=== PATIENT | female | born 1975 | race Caucasian/White ===

== ENCOUNTER 2018-07-27 05:05 | Day surgery (SDC) | payer BC, OTHER ==
[2018-07-25 16:59] VITALS: BMI 26.7
[2018-07-27] MEDS ORDERED: PHENAZOPYRIDINE HCL 100 MG TABLET (FP) ONE (07:18)
[2018-07-27] MEDS ORDERED: CEFAZOLIN 1 GM/D5W 1 GM/50 ML BAG IVPB ONE (07:18)
--- NOTE | 2018-07-27 07:18 | HP ---
History & Physical Update - History History: No Change - Physical Physical: No Change - Assessment Assessment: No Change - Plan Plan: No Change (No change in HP)
[2018-07-27] MEDS ORDERED: PHENAZOPYRIDINE HCL 100 MG TABLET (FP) PO STA (07:19)
[2018-07-27] MEDS ORDERED: BUPIVACAINE HCL/PF 0.5% (5MG/ML) 10 ML VIAL ONE (07:26)
[2018-07-27 07:47] LABS: EPI CELLS 7.4 /HPF (0-5/HPF); HYALINE CASTS 3 /lpf (0-8); URINE APPEARANCE CLEAR; URINE BACTERIA 92.6 /hpf (NEGATIVE); URINE BILIRUBIN NEGATIVE (NEGATIVE); URINE COLOR YELLOW; URINE GLUCOSE (UA) TRACE (NEGATIVE); URINE KETONE NEGATIVE (NEGATIVE); URINE LEUK ESTERASE NEGATIVE (NEGATIVE); URINE NITRITE NEGATIVE (NEGATIVE); URINE PROTEIN 1+ (NEGATIVE); URINE RBC 5 /hpf (0-4); URINE UROBILINOGEN 0.2 mg/dL (0.2-1.0); URINE WBC 2 /hpf (0-5)
[2018-07-27] MEDS ORDERED: ROPIVACAINE HCL 0.5% 30ML VIAL ONE (07:56)
[2018-07-27] MEDS ORDERED: MIDAZOLAM HCL 2 MG/2 ML SINGLE DOSE VIAL ONE ×2 (07:58)
[2018-07-27] MEDS ORDERED: PROPOFOL 20 ML ONE ×2 (08:15)
[2018-07-27] MEDS ORDERED: SUCCINYLCHOLINE CHLORIDE 200 MG/10 ML SYRINGE ONE (08:16)
[2018-07-27] MEDS ORDERED: ROCURONIUM BROMIDE 50 MG/5 ML SYRINGE ONE (08:16)
[2018-07-27] MEDS ORDERED: fentaNYL CITRATE 250 MCG/5 ML VIAL ONE (08:17)
[2018-07-27] MEDS ORDERED: ceFAZolin SODIUM 1 GM VIAL IVPB ONE (08:45)
[2018-07-27] MEDS ORDERED: LIDOCAINE HCL/PF 2% SDV 5ML VIAL ONE (08:53)
[2018-07-27] MEDS ORDERED: DEXAMETHASONE SOD PHOSPHATE 4 MG/1 ML VIAL ONE (08:53)
[2018-07-27] MEDS ORDERED: HYDROmorphone HCl 2 MG/ML VIAL ONE (08:59)
[2018-07-27] MEDS ORDERED: ceFAZolin SODIUM 1 GM VIAL ONE ×2 (08:59→17:13)
[2018-07-27] MEDS ORDERED: DESFLURANE GAS 240 ML BOTTLE IH ONE (09:59)
[2018-07-27] MEDS ORDERED: NEOSTIGMINE METHYLSULFATE 0.5 MG/ML - 10 ML MDV ONE (10:31)
[2018-07-27] MEDS ORDERED: GLYCOPYRROLATE 0.2 MG/1 ML VIAL ONE (10:31)
[2018-07-27] MEDS ORDERED: BUPIVACAINE HCL/PF 0.5% (5MG/ML) 10 ML VIAL IJ ONE (10:47)
[2018-07-27] MEDS ORDERED: ONDANSETRON 4 MG/2 ML VIAL IVPUSH PRN ×2 (11:19→11:22)
[2018-07-27] MEDS ORDERED: INSULIN REGULAR HUMAN 100 UNITS/ML *VIAL SQ ONE (11:20)
[2018-07-27] MEDS ORDERED: SIMETHICONE 80 MG TAB.CHEW (FP) PO PRN (11:22)
[2018-07-27] MEDS ORDERED: BISACODYL 5 MG TABLET.DR (FP) PO PRN (11:22)
[2018-07-27] MEDS ORDERED: ACETAMINOPHEN 325 MG TABLET (FP) PO PRN (11:22)
[2018-07-27] MEDS ORDERED: IBUPROFEN 800 MG/8 ML IJ IVPB PRN (11:22)
[2018-07-27] MEDS ORDERED: oxyCODONE HCL 5 MG TABLET PO PRN ×2 (11:22)
[2018-07-27] MEDS ORDERED: DOCUSATE SODIUM 100 MG CAPSULE (FP) PO PRN (11:22)
[2018-07-27] MEDS ORDERED: SODIUM CHLORIDE 1,000 ML IV SCH (11:30)
[2018-07-27] MEDS: ACETAMINOPHEN 1000 MG/100 ML VIAL (NON FORMULARY) IVPB ONE ×2 (11:35→17:16)
--- NOTE | 2018-07-27 11:49 | OP ---
Operative Note - Note: Operative Date: 07/27/18 Pre-Operative Diagnosis: uterine endometriosis. Abdominal pain Operation: robotic assisted laparoscopic hysterectomy, bilateral salpingectomy Post-Operative Diagnosis: Same as Pre-op Surgeon: Larissa Ng Store Warehouse Associate: Latoya Ojeda Anesthesiologist/ASSISTANT COACH: Hope Carrillo Anesthesia: General Specimens Removed: uterus. bilateral fallopian tubes Estimated Blood Loss (mls): 25 Drains, Volume Out (mls): 225 (melendrez) Fluid Volume Replaced (mls): 1,500 Operative Report Dictated: Yes
--- NOTE | 2018-07-27 11:53 | SURG ---
Surgery Insect Control Aide Note Insect Control Aide: Latoya Ojeda PA-C Date of Service: 07/27/18 Diagnosis: uterine endometriosis Abdominal pain Procedure: robotic assisted laparoscopic hysterectomy, bilateral salpingectomy I was present for the entirety of the operative procedure. For further detail, please refer to operative report. Visit type - Case Type Case Type: Scheduled - Emergency Emergency Visit: No - New patient This patient is new to me today: Yes Date on this admission: 07/27/18
[2018-07-27] MEDS ORDERED: DEXTROSE 5%-WATER - 50 ML IVPB ONE (17:13)
[2018-07-27] MEDS: CEFAZOLIN 1 GM in DEXTROSE 5%-WATER - 50 ML IVPB SCH (17:15)
[2018-07-27] MEDS: INSULIN SLIDING SCALE (NOVOLOG) 1 VIAL SQ SCH (17:16)
[2018-07-27] MEDS ORDERED: CEFAZOLIN 1 GM/D5W 1 GM/50 ML BAG IVPB SCH (17:30)
[2018-07-27 20:11] LABS: HEMATOCRIT 25.6 % (32.4-45.2); MCH 24.6 pg (25.7-33.7); MCHC 31.3 g/dl (32.0-36.0); MEAN CELL VOLUME 78.8 fl (80-96); PLATELET COUNT 583 K/MM3 (134-434); RBC 3.25 M/mm3 (3.60-5.2); RDW 18.2 % (11.6-15.6); WHITE BLOOD COUNT 14.9 K/mm3 (4.0-10.0)
[2018-07-27 20:15] LABS: BLOOD UREA NITROGEN 6.9 mg/dL (7-18); CALCIUM 8.5 mg/dL (8.5-10.1); CREATININE 0.7 mg/dL (0.55-1.3); POTASSIUM 4.1 mmol/L (3.5-5.1)
--- NOTE | 2018-07-27 20:39 | OP ---
DATE OF OPERATION: 07/27/2018 PREOPERATIVE DIAGNOSIS: Leiomyomatous uterus, pelvic pain, menorrhagia, adenomyosis. OPERATION: Laparoscopic robotic total hysterectomy and bilateral salpingectomy. SURGEON: Aury Ng MD EVAPORATOR OPERATOR: CHRISTEL Colbert ANESTHESIA: General. FINDINGS: Uterus approximately 12 to 13 cm in size. Normal tubes and ovaries. PROCEDURE: The patient was taken to the operating room, placed in dorsal lithotomy position, prepped and draped in the usual sterile fashion. A time-out was performed in accordance with hospital regulation. Speculum was placed in the vagina, anterior lip of the cervix grasped with single-tooth tenaculum. Cervix was then dilated to accommodate the large uterine manipulator. Manipulator was placed around the cervix, and Kerr catheter was then inserted in the bladder. Attention was then drawn to the umbilicus, where an 8-mm umbilical incision was made. Veress was inserted into the cavity. Approximately 3 to 4 L CO2 was insufflated in the cavity. Veress needle was then removed. An 8-mm trocar was then inserted. Visualization revealed bowel attached to the upper abdomen and omentum also attached to the upper abdomen. Two trocars were placed on the left side, one incision parallel to the umbilical incision and one in the upper abdomen away from the attached bowel. Trocars were placed under direct visualization. An AirSeal cannula was placed in the upper abdomen. Attention was then drawn to the right side, where two 8-mm incisions were made 8 to 10 cm apart from each other, and the trocars were placed under direct visualization, and the da Rashaun robot was then side docked to the patient's arm, trocars were confirmed placement, and instruments were then inserted. All trocars were confirmed and burped up and after placement of all instruments above the uterus, attention was then drawn to the console, where control of the da Rashaun robot was then done. Tenaculum was placed in arm number 4 and was used to elevate and lift the uterus. Uteroovarian ligaments identified on the left and clamped and cut. Uterine artery was identified and clamped and cut. Vesicouterine reflection was then entered and the bladder was bluntly dissected out of the operative field. The uterine manipulator was then identified. Cardinal ligaments identified and clamped and cut. Ureter was identified on the left and found to have peristalsis. Vagina was then entered using Endo Marichuy, and the same procedure was repeated on the right side, where uteroovarian ligament was identified and clamped and cut. Uterine arteries were identified, clamped and cut. Cardinal ligaments identified, clamped and cut. Vesicouterine reflection was then entered on the right side and bladder was bluntly dissected out of the operative field. The Endo Marichuy was then used to cut the vagina away from the cervix circumferentially, and cervix was then removed from the vagina. Attention was then drawn to the vagina, where tenaculum was placed on the cervix and the uterus and then the uterus was exteriorized out of the vagina. The 2-0 V-Loc suture was then introduced and da Rashaun robot was used to continue a stitch on the vagina and close the vaginal cuff. The tubes were removed using cautery and cutting, and removed through the vagina before the vaginal cuff was closed. Hemostasis was achieved, irrigation done. Needle was then removed. Incisions were then closed using 3-0 Biosyn suture in subcuticular fashion. Wound was washed and dressed. Patient tolerated procedure well. Patient was taken to the recovery room in stable condition. Estimated blood loss 25 mL. Prior to closure of the case, ureters were both identified and found to have vigorous peristalsis. AURY NG M.D. [id number]
[2018-07-27] MEDS ORDERED: PT OWN MED DRAWER 7, Y5N ONE (21:25)
[2018-07-27] MEDS: ASPIRIN COATED 81 MG TABLET.EC PO SCH (21:28)
[2018-07-27] MEDS: lamoTRIgine 100 MG TABLET (FP) PO SCH (21:28)
[2018-07-27] MEDS ORDERED: INSULIN (LEVEMIR) 100 UNITS/ML UNITS SQ SCH (22:00)
[2018-07-27] MEDS ORDERED: LISINOPRIL 10 MG TABLET (FP) PO SCH (22:00)
[2018-07-27] MEDS ORDERED: ATORVASTATIN CA 20 MG TABLET (FP) PO SCH (22:00)
[2018-07-27] MEDS ORDERED: LAMOTRIGINE PO SCH (22:00)
[2018-07-28] MEDS ORDERED: ceFAZolin SODIUM 1 GM VIAL ONE ×2 (01:44→10:11)
[2018-07-28] MEDS ORDERED: DEXTROSE 5%-WATER - 50 ML IVPB ONE ×2 (01:44→10:11)
[2018-07-28] MEDS: CEFAZOLIN 1 GM in DEXTROSE 5%-WATER - 50 ML IVPB SCH ×2 (01:50→10:14)
[2018-07-28] MEDS ORDERED: PT OWN MED DRAWER 7, Y5N ONE (05:10)
[2018-07-28] MEDS: lamoTRIgine 100 MG TABLET (FP) PO SCH (05:35)
[2018-07-28] MEDS: INSULIN SLIDING SCALE (NOVOLOG) 1 VIAL SQ SCH ×2 (06:11→12:40)
[2018-07-28 06:43] VITALS: BP 111/68; PULSE 80; TEMP 98.5
[2018-07-28 07:32] LABS: HEMATOCRIT 25.4 % (32.4-45.2); HEMOGLOBIN 7.8 GM/dL (10.7-15.3); MCH 24.5 pg (25.7-33.7); MCHC 30.6 g/dl (32.0-36.0); MEAN CELL VOLUME 80.1 fl (80-96); PLATELET COUNT 527 K/MM3 (134-434); RBC 3.17 M/mm3 (3.60-5.2); RDW 18.4 % (11.6-15.6); WHITE BLOOD COUNT 13.6 K/mm3 (4.0-10.0)
--- NOTE | 2018-07-28 09:37 | PN ---
Progress Note (short form) - Note Progress Note: POD 1, s/p robotic assisted laparoscopic hysterectomy, bilateral salpingectomy Pt seen and examined. Reports she is feeling "okay". Has had some abdominal pain overnight, controlled with meds. Has been oob to the restroom, passed TOV. Tolerating water, did not eat last night as she was not hungry. Denies any vaginal bleeding. Has not passed flatus. Denies cp/sob/n/v/d, calf pain/edema. Vital Signs Temp 98.5 F 07/28/18 06:00 Pulse 80 07/28/18 06:00 Resp 18 07/28/18 06:00 BP 111/68 07/28/18 06:00 Pulse Ox 94 L 07/27/18 21:00 Intake & Output 07/27/18 07/27/18 07/28/18 11:59 23:59 11:59 Intake Total 1700 800 100 Output Total 250 2800 600 Balance 1450 -2000 -500 Intake: IV 1700 500 Normal Saline - 1,000 ml 500 @ 125 mls/hr IV ASDIR DANIA Rx#:[id number] IVPB 100 Oral 300 Output: Urine 225 2800 600 Kerr 1000 600 Estimated Blood Loss 25 Other: Voiding Method Indwelling Catheter Bowel Movement No CBC, BMP 07/28/18 06:34 07/28/18 06:34 Gen: awake, alert, nad Resp: unlabored on RA Abdo: soft, minimally ttp throughout pelvic area (appropriate to status), incisions c/d/i with dermabond in place. Ext: calves soft, nt A/p: 43 y/o F w/ PMHx htn, IDDM, HLD, uterine endometriosis now POD 1, s/p robotic assisted laparoscopic hysterectomy, bilateral salpingectomy. afebrile, vss Labs stable. -Plan for d/c this afternoon. Pts pharmacy permanently closed, unbeknownst to pt. [facility] meds. Cost <$3. Rn aware and will contact pharmacy to deliver meds. d/w attending Dr Ng
[2018-07-28] MEDS ORDERED: ENOXAPARIN NA (PORCINE) 40 MG/0.4 ML DISP.SYRIN SQ SCH (10:00)
[2018-07-28] MEDS ORDERED: ASPIRIN 81 MG CHEWABLE TABLETS PO SCH (10:00)
[2018-07-28] MEDS: ASPIRIN COATED 81 MG TABLET.EC PO SCH (10:14)
[2018-07-28 11:40] LABS: ALBUMIN 2.6 g/dl (3.4-5.0); BILIRUBIN,TOTAL 0.3 mg/dL (0.2-1); BLOOD UREA NITROGEN 8.5 mg/dL (7-18); CALCIUM 8.3 mg/dL (8.5-10.1); CREATININE 0.7 mg/dL (0.55-1.3); TOT PROT 5.9 g/dl (6.4-8.2)
--- NOTE | 2018-07-28 13:34 | PN ---
Progress Note (short form) - Note Progress Note: Anesthesia note post op POD#1, S/P robotic transvaginal hysterectomy. VSS. No post anesthesia complications reported. Pat D/c'd home.
--- NOTE | 2018-07-31 16:35 | PATH ---
Surgical Pathology Report Patient Name: KAYLIE RODRIGUEZ [facility]. Rec. #: [id number] /Age/Gender: 1975 (Age: 43) / F Account: [id number] Location: AMBULATORY SURG Taken: 07/27/2018 Received: 07/27/2018 Reported: 07/31/2018 Physicians: Larissa Ng M.D. Specimen(s) Received A: UTERUS AND CERVIX B: RIGHT FALLOPIAN TUBE C: LEFT FALLOPIAN TUBE Clinical History Pelvic pain, adenomyosis, menorrhagia Final Diagnosis A. UTERUS AND CERVIX, HYSTERECTOMY: LEIOMYOMATA. SECRETORY TYPE ENDOMETRIUM. CERVIX WITH NO SIGNIFICANT PATHOLOGIC CHANGE. B. RIGHT FALLOPIAN TUBE, SALPINGECTOMY: PORTION OF FALLOPIAN TUBE WITH ENDOSALPINGIOSIS. C. LEFT FALLOPIAN TUBE, SALPINGECTOMY: PORTION OF FALLOPIAN TUBE WITH ENDOSALPINGIOSIS. Electronically Signed Colin Wesley M.D. Gross Description A. Received in formalin labeled "uterus and cervix," is a 315 g uterus with an attached cervix and no attached adnexa. The specimen measures 11 cm from superior to inferior, 8.0 cm from anterior to posterior and 7.8 cm from left to right. The serosa is rojas richards with focal defects. The attached cervix measures 3 cm in length and averages 2.3 cm in diameter. The ectocervix is rojas, smooth and glistening. The endocervix is unremarkable. The endometrial cavity measures 5 cm in length and 2 cm from cornu to cornu. The endometrium is rojas-red in measures up to 0.3 cm in thickness. The myometrium displays abundant intramural nodules, measuring up to 2.7 cm in greatest dimension. The cut surface of the nodules is rojas, firm to rubbery with whorled architecture. No areas of hemorrhage or necrosis are identified. The myometrium is rojas-pink with whorled architecture and measures up to 4.2 cm in thickness. [employer] sections are submitted in 10 cassettes as follows: 1-anterior cervix; 2-posterior cervix; 5-7-nvinrnfk endomyometrium; 5-7-njnprrzlh endomyometrium; 9-61-wntrgnxuza nodules. B. Received in formalin labeled "right fallopian tube," is a 4.0 cm in length fimbriated fallopian tube. The outer surface is quintero and smooth. Sectioning reveals an unremarkable lumen. [employer] sections are submitted in 2 cassettes as follows: 1-fimbria; 2-cross sections of fallopian tube. C. Received in formalin labeled "left fallopian tube," is a 3.5 cm in in length fimbriated fallopian tube. The outer surface is quintero-brown with focal adhesions. Sectioning reveals an unremarkable lumen. [employer] sections are submitted in 2 cassettes as follows: 1-fimbria; 2-cross sections of fallopian tube. 07/28/2018 [facility]07/28/2018
== END 2018-07-28 12:51 | disposition home or self-care (01) ==
LOC: JASUSAT 05:05 → J8W 13:52 → JASUSAT 07-28 12:51
PROVIDERS: ATTEND Obstetrics & Gynecology
PROC: 8E0W4CZ Robotic Assisted Procedure of Trunk Region, Percutaneous Endoscopic Approach (ICD-10-PCS; 2018-07-27)
PROC: 0UT9FZZ Resection of Uterus, Via Natural or Artificial Opening With Percutaneous Endoscopic Assistance (ICD-10-PCS; principal; 2018-07-27 08:00)
PROC: 0UT7FZZ Resection of Bilateral Fallopian Tubes, Via Natural or Artificial Opening With Percutaneous Endoscopic Assistance (ICD-10-PCS; 2018-07-27 08:00)
DX: D25.9 Leiomyoma of uterus, unspecified (principal); N94.89 Other specified conditions associated with female genital organs and menstrual cycle
CPT/HCPCS: 58554; S2900; 36415; 80048; 80053; 81003; 82962; 85027; 86900; 88302-TC; 88307-TC; 94760; J0131; J7030